=== PATIENT | female | born 1975 | race Caucasian/White ===

== ENCOUNTER 2021-08-26 17:45 | Emergency (ER) | payer MEDICARE, MEDICAID ==
[2021-08-26] MEDS ORDERED: Ketorolac 30 MG/ML SDV IVPUSH ONE (17:47)
[2021-08-26] MEDS ORDERED: Morphine 4 MG/ML VIAL IVPUSH STA (17:57)
[2021-08-26] MEDS ORDERED: Sodium Chloride 0.9% 1,000 ML IV SCH ×3 (18:00→21:00)
[2021-08-26] MEDS ORDERED: Sodium Chloride 0.9% 1,000 ML IV ONE (18:04)
[2021-08-26] MEDS ORDERED: Ampicillin 2 GM in Sodium Chloride 0.9% 100 ML IV STA (19:22)
[2021-08-26] MEDS ORDERED: cefTRIAXone 1 GM in Sodium Chloride 0.9% 50 ML IV STA (19:24)
[2021-08-26] MEDS ORDERED: cefTRIAXone 1 GM Vial IVPUSH STA (19:56)
[2021-08-26 23:45] VITALS: PULSE 112
[2021-08-26 23:46] VITALS: BP 82/56
== END 2021-08-26 21:17 ==
LOC: FB.ED 17:45
DX: N20.0 Calculus of kidney (principal); N39.0 Urinary tract infection, site not specified; N17.9 Acute kidney failure, unspecified; N13.8 Other obstructive and reflux uropathy; Z91.09 Other allergy status, other than to drugs and biological substances; Z79.899 Other long term (current) drug therapy; Z20.822 Contact with and (suspected) exposure to COVID-19
CPT/HCPCS: 36415; 80053; 82150; 83605; 83690; 85025; 96365; 96375; 99284; 99285-25; J0290; J0696; J2270; J7030; U0002